=== PATIENT | male | born 1985 | race African-American/Black ===

== ENCOUNTER 2016-10-18 04:18 | Emergency (ER) | payer SELFPAY ==
[~2016-10-18] VITALS: Ht 175.3 cm; Wt 72.6 kg
--- NOTE | ~2016-10-18 | CR72 ---
[facility] A Service of [facility] RADIOLOGY TEXT RESULTS PATIENT: FERNANDO HUTCHINSON LOCATION: [facility] : 83 UNIT #: [id number] AGE: [address]: CLINT GATES APRN SEX: M ORDER DR: [id number] [facility] [address] [place], [place] [address] [id number] MR#: [id number] Acc #: [id number] NAME: FERNANDO HUTCHINSON : 1985 SEX: M STUDY DATE/TIME: 10/18/2016 4:59 UNIT: [facility] ROOM: STUDY DESCRIPTION: CR Chest Single View Portable Attending Physician: Clint Gates Aprn Ordering Physician: Clint Gates Aprn Primary Care Physician: No Primary Care Physician MEDICAL IMAGING REPORT This report is preliminary unless electronic signature is present EXAM Portable chest INDICATIONS Chest pain and wheezing today. PROCEDURE Frontal view chest COMPARISON None. FINDINGS Heart size normal. No dense consolidation pleural fluid or pneumothorax. IMPRESSION No active process Dictated by... Deuce Khoury M.D. THIS IS AN ELECTRONICALLY VERIFIED REPORT Deuce Khoury M.D. at 10/18/2016 10:03 PM CHASITY/mamie TD: 10/18/2016 21:08 JOB #: [id number] MEDICAL IMAGING REPORT Page 1 of 1 COPY
== END 2016-10-18 06:35 | disposition home or self-care (01) ==
LOC: CED 04:18
DX: J20.9 Acute bronchitis, unspecified (principal)
CPT/HCPCS: 71010; 94640; 99285